=== PATIENT | male | born 1940 | race Caucasian/White ===

== ENCOUNTER 2017-11-07 06:35 | Observation (INO) | payer OTHER ==
[2017-10-26 10:10] LABS: ABSOLUTE BASOPHILS 0.1 thou/uL (0.0-0.2); ABSOLUTE EOSINOPHILS 0.1 thou/uL (0.0-0.7); ABSOLUTE MONOCYTES 0.9 thou/uL (0.0-1.2); ABSOLUTE NEUTROPHILS 4.6 thou/uL (1.6-8.1); BASOPHILS 1.3 %; EOSINOPHILS 1.8 %; HEMOGLOBIN 8.5 gm/dL (14.0-18.0); LYMPHOCYTES 14.3 %; MCH 24.2 pg (26.0-34.0); MCHC 30.3 g/dL (28.0-37.0); MCV 79.8 fL (80.0-100.0); MONOCYTES 13.8 %; NUCLEATED RBCS 0 /100WBC; PLATELET COUNT* 308 thou/uL (150-400); POLYS 68.8 %; RBC 3.51 mil/uL (4.50-6.00); RDW-CV 20.6 % (10.5-14.5); WBC 6.7 thou/uL (4.0-11.0)
[2017-10-26 10:16] LABS: CALCIUM 8.8 mg/dL (8.5-10.1); CREATININE 1.6 mg/dL (0.6-1.3)
[2017-10-26 10:35] LABS: ANISOCYTOSIS 1+; PLATELET ESTIMATE ADEQUATE; POLYCHROMASIA 1+
--- NOTE | 2017-10-26 16:38 | EKG ---
[place] [address] ELECTROCARDIOGRAM REPORT Name: JONG DURÁNDON Mccauley Room: [facility].#: [id number] Admission: Attend Phys: Eliza Martinez Discharge: Date of : 36 Report #: [id number] THIS REPORT FOR: //name// [facility] Test Date: 2017-10-26 Test Time: 10:13:55 Pat Name: DERRELL DURÁN Department: Room: Gender: Spragger: : 1940 Requested By: Jose A Newton Order Number: [id number] Reading MD: Sampson Wright Measurements Intervals [place] Rate: 60 P: 0 CT: 172 QRS: -68 QRSD: 188 T: 110 QT: 520 QTc: 520 Interpretive Statements Ventricular-paced rhythm No further analysis attempted due to paced rhythm Electronically Signed On 10-26-2017 16:38:00 CDT by Sampson Wright [email or web address] <ELECTRONICALLY SIGNED> By: Sampson Wright MD, [facility] 10/26/17 1638 [id number] Sampson Wright MD, FACC /EPI
[~2017-11-07] VITALS: Ht 167.6 cm; Wt 78.5 kg
[~2017-11-07 06:35] MED LIST: ALDACTONE25 MG PO; ATORVASTATIN CA40 MG PO; CO Q-10100 MG PO; COREG3.125 MG PO; COUMADIN 4 MG TA4 M1 PO; FOLIC ACID0.4 MG PO; IRON325 PO; JANTOVEN6 MG PO; LASIX 20 MG TAB20 MG PO; LISINOPRIL2.5 MG PO; POTASSIUM GLUC500 GM PO; PROSCAR 5MG TABL5 MG PO; PROTONIX40 M1 PO; PULMICORT0.5 MG/22; VITAMIN D3400 UNIT PO; VITAMINC500 PO; ZANTAC 150MG T150 MG PO
[2017-11-07] MEDS ORDERED: HYDROCODONE-AP1 EAC6 PO (08:43)
--- NOTE | 2017-11-07 18:50 | NUR ---
PT ADMITTED THIS AM FROM PACU. PT HAS ADAMS TO DD WITH RED URINE. NO CLOTS NOTED. PT DENIES PAIN OR OTHER DISCOMFORTS CURRENTLY. PT ENCOURAGED TO AMBULATE IN ROOM. PT ABLE TO MAKE NEEDS KNOWN, CALL LIGHT IN REACH
[2017-11-07 20:40] VITALS: BP 127/51
[2017-11-08] VITALS: BP 146/49
[2017-11-08 04:00] VITALS: BP 130/52
--- NOTE | 2017-11-08 04:34 | NUR ---
PATIENT REMAINS ALERT AND ORIENTED X4 THROUGHOUT SHIFT. VITAL SIGNS STABLE ON 2 LITERS OF OXYGEN. IV PATENT IN THE LEFT WRIST INFUSING AT 75 ML/HR. ADAMS IN PLACE, PATENT AND DRAINING PINK DRAINAGE. PATIENT TRANSFERS WITH ASSIST OF ON BUT HAS NOT BEEN UP THIS SHIFT. CAPNO IN PLACE. RESTING COMFORTABLY THROUGHOUT THE NIGHT. DENIES PAIN OR NAUSEA. HOURLY ROUNDING COMPLETE. FALL PRECAUTIONS IN PLACE. CALL LIGHT WITHIN REACH. POSSIBLE DISCHARGE TODAY. NURSING WILL CONTINUE TO MONITOR.
[2017-11-08 09:26] VITALS: BP 135/78
[2017-11-08 15:45] VITALS: BP 135/78
[2017-11-08] MEDS ORDERED: ASPIR 8181 MG PO (17:05)
[2017-11-08] MEDS ORDERED: CANASA1000 MG PO (17:06)
[2017-11-08] MEDS ORDERED: FLOMAX0.4 MG PO (17:07)
--- NOTE | 2017-11-08 17:48 | NUR ---
ASSUMED CARE OF PATIENT AFTER MORNING REPORT. ALERT AND ORIENTED X4. ASSESSMENT COMPLETED AND CHARTED. VSS ON ROOM AIR. PATIENT HAS HAD NO COMPLAINTS OF PAIN, NAUSEA OR SOA THIS SHIFT. FILL AND VOID TRIAL ORDERED FOR 250 ML INTO HE BLADDER, REMOVE ADAMS AND MEASURE OUTPUT, PATIENT VOIDED AFTER APPROXIMATELY 2 HOURS. UROLOGY UPDATED AND CLEARED HIM FOR DISCHARGE WITH A PRESCRIPTION FOR FLOMAX AND FOLLOW UP IN 1 WEEK. PATIENT DISCHARGED AT 1750, ALL PERSONAL BELONGINGS, PRESCRIPTIONS, AND DISCHARGE INFORMATION SENT WITH PATIENT UPON DISCHARGE.
[2017-11-14 18:11] LABS: STONE CA OXALATE MONOHYDRATE 92 % (()); STONE COLOR Brown (()); STONE COMMENT Comment: (()); STONE WEIGHT 267.4 mg (())
--- NOTE | 2018-02-03 10:16 | OP ---
[address] [address] OPERATIVE REPORT Name: DRERELL DURÁN Room: [address] Raghu Dinero#: [id number] Admission: 11/07/17 Attend Phys: Eliza Martinez Discharge: 11/08/17 Date of : 36 Report #: [id number] THIS REPORT FOR: //name// CC: Jose A Gillette SURGEON: Dr. Jose A Newton. PREOPERATIVE DIAGNOSES: Large bladder stone and urinary infection. POSTOPERATIVE DIAGNOSES: Large bladder stone and urinary infection. PROCEDURE: Panendoscopy, cystoscopy, laser of stone and extraction of stone. No complications. INDICATIONS: This is a 77-year-old white male with a history of a large bladder stone and UTI. He presents now for removal of the bladder stone. He understands risks of bleeding, infection, need for another procedure, cardiovascular and pulmonary complications and wished to proceed. DESCRIPTION OF PROCEDURE: Informed consent was obtained. The patient was sterilely prepped and draped in dorsal lithotomy position and was given preoperative antibiotics of meropenem based off his urine cultures. Cystoscopy was carried out. He had a moderate amount of bilobar hyperplasia but his urinary symptoms had been better secondary to his medications he has received, so it was discussed thoroughly with the patient, we would not do any procedures on the prostate at this time. The bladder stone was easily seen. It was approximately 2 cm in size, broken with a laser 1000 micron fiber into multiple small pieces, which were then extracted using the and also with the grasper, the 30 and 70 degree lenses were then used. The bladder was thoroughly inspected. No evidence of any other stones or abnormalities in the bladder. Irrigations were completely clear, 18-Macanese Garcia was placed. The patient tolerated this well and was taken to recovery room in good condition. Plan will be to remove the Garcia catheter in the morning. <ELECTRONICALLY SIGNED> By: Jose A Newton MD 02/03/18 1016 [id number] A Newton MD /nt
== END 2017-11-08 17:50 | disposition home or self-care (01) ==
LOC: M.SUR 06:35 → M.LAB 09:47 → M.ORTHSURG 10:19 → M.TBA 10:19 → M.SUR 10:19 → M.ORTHSURG 10:19 → M.LAB 10:54 → M.SUR 14:39 → M.LAB 14:45 → M.SUR 14:56 → M.ORTHSURG 11-08 17:50
PROVIDERS: ADMIT Urology
DX: N21.0 Calculus in bladder (principal); N39.0 Urinary tract infection, site not specified; N20.0 Calculus of kidney; N40.1 Benign prostatic hyperplasia with lower urinary tract symptoms; R10.9 Unspecified abdominal pain; R31.9 Hematuria, unspecified; Z87.891 Personal history of nicotine dependence; Z72.89 Other problems related to lifestyle; Z95.5 Presence of coronary angioplasty implant and graft; Z95.0 Presence of cardiac pacemaker

== ENCOUNTER → 2017-12-19 | Outpatient (CLI) | payer OTHER ==
[~2017-12-19] MED LIST changes: +ASPIR 8181 MG PO; +CANASA1000 MG PO; +FLOMAX0.4 MG PO; +HYDROCODONE-AP1 EAC6 PO
[2017-12-19 10:48] LABS: CREATININE 1.7 mg/dL (0.6-1.3)
== END ==
LOC: M.LAB 09:54 → M.CT 11:00
PROVIDERS: Surgery
DX: I65.23 Occlusion and stenosis of bilateral carotid arteries (principal); I67.2 Cerebral atherosclerosis

== ENCOUNTER → 2018-03-08 | Outpatient (CLI) | payer OTHER ==
[2018-03-08 10:31] LABS: CALCIUM 8.8 mg/dL (8.5-10.1); CREATININE 1.5 mg/dL (0.6-1.3); POTASSIUM 4.4 mmol/L (3.5-5.1)
== END ==
LOC: M.LAB 09:55 → M.CT 11:00
PROVIDERS: Surgery
DX: I70.203 Unspecified atherosclerosis of native arteries of extremities, bilateral legs (principal); I70.0 Atherosclerosis of aorta; K76.0 Fatty (change of) liver, not elsewhere classified; I77.4 Celiac artery compression syndrome; N26.1 Atrophy of kidney (terminal); I10 Essential (primary) hypertension